=== PATIENT | male | born 1985 | race Caucasian/White ===

== ENCOUNTER 2017-05-24 02:12 | Emergency (ER) | payer OTHER ==
[~2017-05-24] VITALS: Wt 77.0 kg
[2017-05-24] MEDS ORDERED: SOD CHLORIDE 0.9% 1,000 ML IV STA (02:46)
[2017-05-24] MEDS ORDERED: ONDANSETRON 4 MG INJ IV STA (02:46)
[2017-05-24 03:34] LABS: BASOPHILS % 0.4 % (0.0-2.0); EOSINOPHILS # 0.1 10^3/ul (0.0-0.5); EOSINOPHILS % 0.8 % (0.0-7.0); HEMATOCRIT 42.3 % (42.0-52.0); HEMOGLOBIN 14.3 g/dl (14.0-18.0); LYMPHOCYTES # 1.4 10^3/ul (0.8-2.9); LYMPHOCYTES % 19.2 % (15.0-51.0); MEAN CORPUSCULAR HEMOGLOBIN 29.2 pg (29.0-33.0); MEAN CORPUSCULAR HGB CONC 33.8 g/dl (32.0-37.0); MEAN CORPUSCULAR VOLUME 86.5 fl (82.0-101.0); MEAN PLATELET VOLUME 9.2 fl (7.4-10.4); MONOCYTE # 0.5 10^3/ul (0.3-0.9); MONOCYTES % 7.1 % (0.0-11.0); NEUTROPHILS % 72.1 % (39.0-77.0); PLATELET COUNT 239 10^3/UL (140-415); RED BLOOD COUNT 4.89 10^6/ul (4.70-6.10); RED CELL DISTRIBUTION WIDTH 12.2 % (11.5-14.5); WHITE BLOOD COUNT 7.4 10^3/ul (4.8-10.8)
[2017-05-24 03:37] LABS: ADD UMIC YES; UR ASCORBIC ACID NEGATIVE (NEGATIVE); UR BILIRUBIN (Dip) NEGATIVE (NEGATIVE); UR BLOOD (Dip) NEGATIVE (NEGATIVE); UR CLARITY CLEAR (CLEAR); UR COLOR YELLOW (YELLOW); UR GLUCOSE (Dip) NEGATIVE (NEGATIVE); UR KETONES (Dip) 1+ mg/dL (NEGATIVE); UR LEUKOCYTE ESTERASE (Dip) NEGATIVE Leu/ul (NEGATIVE); UR MUCUS FEW /HPF (NONE SEEN); UR NITRITE (Dip) NEGATIVE (NEGATIVE); UR RBC 0 /HPF (0-5); UR SPECIFIC GRAVITY (Dip) 1.032 (1.003-1.030); UR TOTAL PROTEIN (Dip) 1+ mg/dl (NEGATIVE); UR UROBILINOGEN (Dip) 1+ mg/dL (NEGATIVE)
[2017-05-24 03:50] LABS: ALBUMIN 4.7 g/dl (3.3-4.9); ALBUMIN/GLOBULIN RATIO 1.46; BILIRUBIN,INDIRECT 1.2 mg/dl (0-1.1); BILIRUBIN,TOTAL 1.2 mg/dl (0.2-1.3); CALCIUM 9.6 mg/dl (8.4-10.2); CREATININE 1.14 mg/dl (0.61-1.24); POTASSIUM 3.9 mmol/L (3.5-5.1); TOTAL PROTEIN 7.9 g/dl (6.1-8.1)
[2017-05-24 04:24] VITALS: BP 141/80; PULSE 65; RESP 18; TEMP 98.3
--- NOTE | 2017-05-24 04:35 | ERD ---
ER Documentation Chief Complaint Date/Time DATE: 05/24/17 TIME: 04:32 Chief Complaint DIZZINESS S/P VOMITING @0030 X1 EMESIS UNDIGESTED FOOD HPI 31-year-old male coming in complaining of dizziness 3 hours. Patient states he came home from work and felt lightheaded so he ate a piece of pizza. He states the dizziness continued and then vomited once. He states he is currently not dizzy at the evaluation but wanted to be evaluated given that he has never had this sensation before. Denies chest pain or shortness of breath. Denies headache. Denies sick contacts. Denies fever. ROS All systems reviewed and are negative except as per history of present illness. PMhx/Soc Medical and Surgical Hx: pt denies Medical Hx History of Surgery: Yes (TYPANOPLASTY (REPAIR OF TYPANIC MEMBRANE)) Anesthesia Reaction: No Hx Neurological Disorder: No Hx Respiratory Disorders: No Hx Cardiac Disorders: No Hx Psychiatric Problems: No Hx Miscellaneous Medical Probl: No Hx Alcohol Use: No Hx Substance Use: No Hx Tobacco Use: No Smoking Status: Never smoker Physical Exam Vitals Vital Signs Date Time Temp Pulse Resp B/P Pulse Ox O2 Delivery O2 Flow Rate FiO2 05/24/17 04:24 98.3 65 18 141/80 99 Room Air 05/24/17 02:16 97.8 59 20 136/76 100 Physical Exam GENERAL: The patient is well-appearing, well-nourished, in no acute distress HEENT: Atraumatic. Conjunctivae are pink. Pupils equal, round, and reactive to light. There is no scleral icterus. Tympanic membranes clear bilaterally. Oropharynx clear. No nystagmus or photophobia. CHEST: Clear to auscultation bilaterally. There are no rales, wheezes or rhonchi. HEART: Regular rate and rhythm. No murmurs, clicks, rubs or gallops. No S3 or S4. NEUROLOGIC: Alert and oriented. Cranial nerves II through XII intact. Motor strength in all 4 extremities with 5 out of 5 strength. Sensation grossly intact. Normal speech and gait. Babinski negative. DTR 2+ throughout. SKIN: There is no apparent rash or petechiae. The skin is warm and dry. Result Diagram: 05/24/17 0310 05/24/17 0310 Results 24 hrs Laboratory Tests Test 05/24/17 03:10 White Blood Count 7.410^3/ul Red Blood Count 4.8910^6/ul Hemoglobin 14.3g/dl Hematocrit 42.3% Mean Corpuscular Volume 86.5fl Mean Corpuscular Hemoglobin 29.2pg Mean Corpuscular Hemoglobin Concent 33.8g/dl Red Cell Distribution Width 12.2% Platelet Count 03899^3/UL Mean Platelet Volume 9.2fl Neutrophils % 72.1% Lymphocytes % 19.2% Monocytes % 7.1% Eosinophils % 0.8% Basophils % 0.4% Nucleated Red Blood Cells % 0.0/100WBC Neutrophils # (Manual) 5.310^3/ul Lymphocytes # 1.410^3/ul Monocytes # 0.510^3/ul Eosinophils # 0.110^3/ul Basophils # 0.010^3/ul Nucleated Red Blood Cells # 0.010^3/ul Urine Color YELLOW Urine Clarity CLEAR Urine pH 6.0 Urine Specific [place] 1.032 Urine Ketones 1+mg/dL Urine Nitrite NEGATIVEmg/dL Urine Bilirubin NEGATIVEmg/dL Urine Urobilinogen 1+mg/dL Urine Leukocyte Esterase NEGATIVELeu/ul Urine Microscopic RBC 0/HPF Urine Microscopic WBC 2/HPF Urine Mucus FEW/HPF Urine Hemoglobin NEGATIVEmg/dL Urine Glucose NEGATIVEmg/dL Urine Total Protein 1+mg/dl Sodium Level 142mmol/L Potassium Level 3.9mmol/L Chloride Level 104mmol/L Carbon Dioxide Level 29mmol/L Anion Gap 13 Blood Urea Nitrogen 22mg/dl Creatinine 1.14mg/dl Glucose Level 124mg/dl Calcium Level 9.6mg/dl Total Bilirubin 1.2mg/dl Direct Bilirubin 0.00mg/dl Indirect Bilirubin 1.2mg/dl Aspartate Amino Transf (AST/SGOT) 28IU/L Alanine Aminotransferase (ALT/SGPT) 30IU/L Alkaline Phosphatase 66IU/L Total Protein 7.9g/dl Albumin 4.7g/dl Globulin 3.20g/dl Albumin/Globulin Ratio 1.46 Lipase 53U/L Current Medications Medications (Trade) Dose Ordered Sig/[place] Route PRN Reason Start Time Stop Time Status Last Admin Dose Admin Sodium Chloride (NS) 1,000 ml @ 1,000 mls/hr Q1H STAT IV 05/24/17 02:46 05/24/17 03:45 DC 05/24/17 03:08 Ondansetron HCl (Zofran Inj) 4 mg ONCE STAT IV 05/24/17 02:46 05/24/17 02:47 DC 05/24/17 03:07 Procedures/MDM ER course: Patient was given a liter of normal saline in the ED. MDM: I have low suspicion for neurodeficit intracranial hemorrhage or mass- effect. Patient's neuro exam is within normal limits. I have low suspicion for dehydration as patient's vital signs are stable patient is nontoxic- appearing. I have low suspicion for electrolyte abnormality. Patient's blood work is within normal limits. Patient is recommended to continue drinking adequate amounts of fluid and told to return to the ER symptoms change or worsen. I have low suspicion for cardiac emergency as patient is not complaining of chest pain or shortness of breath. Patient's vital signs are stable. Departure Diagnosis: Primary Impression: Dizziness Condition: Stable Patient Instructions: Dizziness, Unk Cause Referrals: [facility] YOU HAVE RECEIVED A MEDICAL SCREENING EXAM AND THE RESULTS INDICATE THAT YOU DO NOT HAVE A CONDITION THAT REQUIRES URGENT TREATMENT IN THE EMERGENCY DEPARTMENT. FURTHER EVALUATION AND TREATMENT OF YOUR CONDITION CAN WAIT UNTIL YOU ARE SEEN IN YOUR DOCTORS OFFICE WITHIN THE NEXT 1-2 DAYS. IT IS YOUR RESPONSIBILITY TO MAKE AN APPOINTMENT FOR FOLOW-UP CARE. IF YOU HAVE A PRIMARY DOCTOR --you should call your primary doctor and schedule an appointment IF YOU DO NOT HAVE A PRIMARY DOCTOR YOU CAN CALL OUR PHYSICIAN REFERRAL HOTLINE AT IF YOU CAN NOT AFFORD TO SEE A PHYSICIAN YOU CAN CHOSE FROM THE FOLLOWING [facility] CLINICS [facility] [address] [facility] [address] [facility] [address] [facility]. [facility] [address] [facility] [address] [facility]. [facility]. [address] Additional Instructions: FOLLOW UP WITH YOUR PRIMARY CARE PHYSICIAN TOMORROW.Return to this facility if you are not improving as expected. DERREK CRUZ PA-C May 24, 2017 04:34
== END 2017-05-24 04:26 | disposition home or self-care (01) ==
LOC: FTE 02:12
DX: R42 Dizziness and giddiness (principal); R11.10 Vomiting, unspecified
CPT/HCPCS: 36415; 80053; 81001; 83690; 85025; 96374; 99284; J2405; J7030

== ENCOUNTER 2017-07-05 18:14 | Emergency (ER) | payer OTHER ==
[~2017-07-05] VITALS: Wt 76.0 kg
[2017-07-05] MEDS ORDERED: IBUPROFEN 600 MG TAB PO ONE (19:30)
--- NOTE | 2017-07-05 20:51 | RADRPT ---
PROCEDURE: XR Hand. CLINICAL INDICATION: Fifth digit injury. Pain.. TECHNIQUE: Three views of the right hand were obtained. COMPARISON: No prior studies are available for comparison. FINDINGS: No fracture is identified. Joint relationships are maintained. Bone mineralization is within bindu l limits. Soft tissues are unremarkable. IMPRESSION: No acute fracture. RPTAT: HMVK .Leander Cervantes MD, Date Time Electronically viewed and signed by .Leander Cervantes MD, on 07/05/2017 20:51 .K/
--- NOTE | 2017-07-05 20:54 | ERD ---
ER Documentation Chief Complaint Chief Complaint Right fifth digit pain/injury HPI The patient is a 31-year-old male who presents to the Emergency Department with complaint of right fifth digit pain. The patient reports that he was playing basketball, when he accidentally jammed the right 5th digit against the ball. He noted a mild deformity at the PIP joint following the injury, which he then straightened, and has since "returned to normal." He reports a 5/10 aching pain to the affected area, which is slightly worse with palpation over the PIP joint. Otherwise, denies any restricted range of motion. Denies numbness, tingling, weakness of the distal extremity. Patient notes that he only came to the ED for x-ray imaging. No other complaints at this time. ROS All systems reviewed and are negative except as per history of present illness. Medications Home Meds Active Scripts Ibuprofen* (Motrin*) 600 Mg Tab, 600 MG PO Q6, #30 TAB Prov:UMU FRAIRE PA-C 07/05/17 PMhx/Soc History of Surgery: Yes (TYPANOPLASTY (REPAIR OF TYPANIC MEMBRANE)) Anesthesia Reaction: No Hx Neurological Disorder: No Hx Respiratory Disorders: No Hx Cardiac Disorders: No Hx Psychiatric Problems: No Hx Miscellaneous Medical Probl: No Hx Alcohol Use: No Hx Substance Use: No Hx Tobacco Use: No Physical Exam Vitals Vital Signs Date Time Temp Pulse Resp B/P Pulse Ox O2 Delivery O2 Flow Rate FiO2 07/05/17 18:17 99.1 75 18 122/58 99 Physical Exam Const: Well-developed, well-nourished, in no acute distress. Head: Atraumatic Eyes: Normal Conjunctiva ENT: Normal External Ears, Nose and Mouth. Neck: Supple. Resp: Clear to auscultation bilaterally Cardio: Regular rate and rhythm Skin: No petechiae or rashes. No erythema. No ecchymosis. Back: No midline tenderness Ext: Mild swelling and tenderness to palpation of the PIP joint of the right 5th digit. Normal flexion and extension at the MCP, PIP and DIP joints. Distal neurovascular status intact. Motor and sensation intact. No gross deformity. Radial, median and ulnar nerve distributions intact. Capillary refill is less than 2 seconds. Distal pulses 2+. Neur: Awake and alert Psych: Cooperative. Appropriate. Results 24 hrs Current Medications Medications (Trade) Dose Ordered Sig/[place] Route PRN Reason Start Time Stop Time Status Last Admin Dose Admin Ibuprofen (Motrin) 600 mg ONCE ONCE PO 07/05/17 19:30 07/05/17 19:31 DC 07/05/17 19:13 Procedures/MDM DIAGNOSTIC TESTS AND INTERPRETATION: PROCEDURE: XR Hand. CLINICAL INDICATION: Fifth digit injury. Pain.. TECHNIQUE: Three views of the right hand were obtained. COMPARISON: No prior studies are available for comparison. FINDINGS: No fracture is identified. Joint relationships are maintained. Bone mineralization is within normal limits. Soft tissues are unremarkable. IMPRESSION:No acute fracture. .Leander Cervantes MD, MD Date Time Electronically viewed and signed by .Leander Cervantes MD, on 07/05/2017 20:51 SPLINT APPLICATION: INDICATION: Injury of right 5th digit. LOCATION: Right upper extremity. Right 5th digit. TYPE OF SPLINT: Metal finger splint. NEUROVASCULAR EXAM: The patients extremity was neurovascularly intact prior to and status post splint placement. MEDICAL DECISION MAKING: This is a 31-year-old male presenting to the emergency department with right 5th digit pain after an injury while playing basketball. The patient had mild swelling and tenderness localized to the digit on physical examination, but otherwise vital signs are stable. He remained neurovascularly intact with no decrease in ROM. Differential diagnosis includes, but is not limited to, soft tissue injury, contusion, sprain, strain, dislocation, fracture , neurovascular injury, tendon injury, vascular injury, peripheral nerve injury. No significant abnormalities were noted on the diagnostic tests modalities ordered. His condition improved mildly during her stay after the administration of ibuprofen. On reevaluation the patient reports no new complaints. Upon my review and interpretation of the patient's presentation, clinical data, and overall ER course I believe the patient's symptoms are most consistent with finger sprain/contusion. Based on the aspects of history, physical examination , results of diagnostic tests modalities ordered, and serial evaluations, it was determined that the patient is in stable condition with stable vital signs and therefore can be discharged home with strict return precautions for signs of acute deterioration of condition. The patient was placed in a finger splint for further stabilization. The patient is given a prescription for ibuprofen for pain control and is advised to follow up with a primary care provider for reevaluation and further management within 2-3 days, or return to the ER sooner for worsening symptoms. I shared my medical decision making, plan and the diagnostic results with the patient at length and he verbally understands and agrees with the plan for further observation and care as an outpatient. At the time of discharge all questions were answered. Departure Diagnosis: Primary Impression: Finger injury Encounter type: initial encounter Laterality: right Qualified Code: S69.91XA - Injury of finger of right hand, initial encounter Condition: Stable Patient Instructions: Finger Contusion, Sprain Finger Additional Instructions: Call your primary care doctor TOMORROW for an appointment during the next 2-3 days.See the doctor sooner or return here if your condition worsens before your appointment time. UMU FRAIRE PA-C Jul 05, 2017 20:54
[2017-07-05] MEDS ORDERED: IBUP-1542 PO (20:55)
== END 2017-07-05 21:09 | disposition home or self-care (01) ==
LOC: FTE 18:14
DX: S69.91XA Unspecified injury of right wrist, hand and finger(s), initial encounter (principal); W21.05XA Struck by basketball, initial encounter; Y92.9 Unspecified place or not applicable